=== PATIENT | female | born 1970 | race Caucasian/White ===

== ENCOUNTER 2016-06-22 17:52 | Emergency (ER) | payer BC ==
[~2016-06-22] VITALS: Ht 165.1 cm; Wt 68.6 kg
[~2016-06-22 17:52] MED LIST: BACT800T5 PO; BUPR-175 PO; ESTR.1T TD; METHY5 PO; SERT100 PO
[2016-06-22 17:57] VITALS: BP 128/82; PULSE 85; RESP 18; TEMP 98.2; O2SAT 100
[2016-06-22 18:12] VITALS: O2SAT 97
[2016-06-22] MEDS ORDERED: WELLTAB39 PO (18:15)
[2016-06-22] MEDS ORDERED: ZANT150T2 PO (18:15)
[2016-06-22] MEDS ORDERED: LORA-373 PO (18:15)
[2016-06-22] MEDS ORDERED: SODIUM CHLORIDE 0.9% FLUSH 10 ML FLUSH IV FLUSH PRN (18:15)
[2016-06-22] MEDS ORDERED: METHY10 PO (18:15)
[2016-06-22] MEDS ORDERED: ZOLO100T PO (18:15)
--- NOTE | 2016-06-22 18:19 | PD ---
HPI Chief Complaint: Abdominal Pain Time Seen by Provider: 18:15 Travel History International Travel<30 days: No Contact w/Intl Traveler<30days: No Traveled to known affect area: No History of Present Illness HPI 46-year-old female with previous history of cholecystectomy and hysterectomy, presents to the ER today for several days history of left periumbilical pains which she states feels like pulsations intermittently, tingling down both legs, and nausea. She denies any vomiting, diarrhea, fevers, or any other symptoms. She talked her primary care physician and was told to come into the ER for further evaluation. She rates the pain currently at a 4 out of 10. She does not know any exacerbating or alleviating factors. Modifying Factors: None Associated Signs & Symptoms: Feeling pulsations and left periumbilical abdominal pains with tingling down the legs Risk Factors: None PFSH Past Medical History ADHD: Yes Anxiety: Yes Depression: Yes Cancer: No Cardiovascular Problems: No Diabetes: No Glaucoma: No Headaches: Yes Hepatitis: No Hiatal Hernia: No Hypertension: No Respiratory: No Thyroid Disease: No ?: Not Past Surgical History Abdominal Surgery: Yes Section: Yes Gynecologic Surgery: Yes (CERCLAGE X 2; LASER CERVICAL DYSPLASIA) Hysterectomy: Yes Pacemaker: No Other Surgery: Yes (BIOPSY right breast) Social History Alcohol Use: No Tobacco Use: No Substance Use: No Allergies-Medications (Allergen,Severity, Reaction): Coded Allergies: Penicillin (Verified Allergy, Severe, Hives, 06/22/16) HIVES Reported Meds & Prescriptions Reported Meds & Active Scripts Active Reported Lorazepam 0.5 Mg Tab 0.5 Mg PO DAILY PRN Ritalin IR (Methylphenidate HCl) 10 Mg Tab 10 Mg PO DAILY Wellbutrin Xl 24 HR (Bupropion HCl) 300 Mg Tab 300 Mg PO DAILY Zoloft (Sertraline HCl) 100 Mg Tab 250 Mg PO DAILY Zantac (Ranitidine HCl) 150 Mg Tab 150 Mg PO DAILY Review of Systems Except as stated in HPI: all other systems reviewed are Neg Physical Exam Narrative GENERAL: [Well-developed middle age white female who is currently not in acute distress. SKIN: Focused skin assessment warm/dry. HEAD: Atraumatic. Normocephalic. EYES: Pupils equal and round. No scleral icterus. No injection or drainage. ENT: No nasal bleeding or discharge. Mucous membranes pink and moist. NECK: Trachea midline. No JVD. CARDIOVASCULAR: Regular rate and rhythm. No murmur appreciated. RESPIRATORY: No accessory muscle use. Clear to auscultation. Breath sounds equal bilaterally. GASTROINTESTINAL: Abdomen soft, mild left periumbilical tenderness without guarding or rebound, nondistended. Hepatic and splenic margins not palpable. MUSCULOSKELETAL: No obvious deformities. No clubbing. No cyanosis. No edema. NEUROLOGICAL: Awake and alert. No obvious cranial nerve deficits. Motor grossly within normal limits. Normal speech. PSYCHIATRIC: Appropriate mood and affect; insight and judgment normal. Data Data Last Documented VS Vital Signs Date Time Temp Pulse Resp B/P Pulse Ox O2 Delivery O2 Flow Rate FiO2 06/22/16 18:12 97 06/22/16 17:57 98.2 85 18 128/82 Orders Complete Blood Count With Diff (06/22/16 18:05) Comprehensive Metabolic Panel (06/22/16 18:05) Lipase (06/22/16 18:05) Urinalysis - C+S If Indicated (06/22/16 18:05) Iv Access Insert/Monitor (06/22/16 18:05) Ecg Monitoring (06/22/16 18:05) Oximetry (06/22/16 18:05) Sodium Chloride 0.9% Flush (Ns Flush) (06/22/16 18:15) Ct Abd/Pel W Iv Contrast(Rout) (06/22/16 18:15) Labs Laboratory Tests Test 06/22/16 18:15 White Blood Count 7.2 TH/MM3 Red Blood Count 4.59 MIL/MM3 Hemoglobin 12.9 GM/DL Hematocrit 39.2 % Mean Corpuscular Volume 85.3 FL Mean Corpuscular Hemoglobin 28.1 PG Mean Corpuscular Hemoglobin 33.0 % Concent Red Cell Distribution Width 12.5 % Platelet Count 185 TH/MM3 Mean Platelet Volume 9.0 FL Neutrophils (%) (Auto) 69.6 % Lymphocytes (%) (Auto) 20.9 % Monocytes (%) (Auto) 7.3 % Eosinophils (%) (Auto) 1.7 % Basophils (%) (Auto) 0.5 % Neutrophils # (Auto) 5.1 TH/MM3 Lymphocytes # (Auto) 1.5 TH/MM3 Monocytes # (Auto) 0.5 TH/MM3 Eosinophils # (Auto) 0.1 TH/MM3 Basophils # (Auto) 0.0 TH/MM3 CBC Comment DIFF FINAL Differential Comment Sodium Level 141 MEQ/L Potassium Level 3.8 MEQ/L Chloride Level 106 MEQ/L Carbon Dioxide Level 25.6 MEQ/L Anion Gap 9 MEQ/L Blood Urea Nitrogen 11 MG/DL Creatinine 0.83 MG/DL Estimat Glomerular Filtration 74 ML/MIN Rate Random Glucose 120 MG/DL Calcium Level 8.9 MG/DL Total Bilirubin 0.2 MG/DL Aspartate Amino Transf 10 U/L (AST/SGOT) Alanine Aminotransferase 23 U/L (ALT/SGPT) Alkaline Phosphatase 58 U/L Total Protein 7.0 GM/DL Albumin 3.8 GM/DL Lipase 120 U/L [facility] Medical Decision Making Medical Screen Exam Complete: Yes Emergency Medical Condition: Yes Medical Record Reviewed: Yes Interpretation(s) Laboratory Tests Test 06/22/16 18:15 Estimat Glomerular Filtration 74 ML/MIN (>89) Rate Random Glucose 120 MG/DL (74-106) Aspartate Amino Transf 10 U/L (15-37) (AST/SGOT) Differential Diagnosis Gastroenteritis versus obstruction versus aortic aneurysm versus electro abnormalities versus dehydration Narrative Course Labwork and CAT scan was ordered for further evaluation. Patient is fairly comfortable in the ER and does not want pain medications currently. Procedures Procedure Narrative Transabdominal aortic ultrasound was done by me and shows a 1.25 cm aorta. I do not see any signs of acute dilation. Physician Communication Physician Communication Case is signed out to Dr. Michael at 7 PM pending CAT scan and urine. Disposition based on CAT scan and reevaluation. Diagnosis Primary Impression: Abdominal pain Condition: Stable Alison Alvarez MD Jun 22, 2016 18:19
[2016-06-22 18:24] LABS: AUTOMATED NEUTROPHIL # 5.1 TH/MM3 (1.8-7.7); BASOPHIL % 0.5 % (0.0-2.0); EOSINOPHIL # 0.1 TH/MM3 (0-0.4); EOSINOPHIL % 1.7 % (0.0-4.0); HEMATOCRIT 39.2 % (35.0-46.0); HEMO FLAGS DIFF FINAL; LYMPH % 20.9 % (9.0-44.0); LYMPHOCYTE # 1.5 TH/MM3 (1.0-4.8); MEAN CELL VOLUME 85.3 FL (80.0-100.0); MEAN CORPUSCULAR HEMOGLOBIN 28.1 PG (27.0-34.0); MONO % 7.3 % (0.0-8.0); NEUT % 69.6 % (16.0-70.0); PLATELET COUNT 185 TH/MM3 (150-450); RED BLOOD COUNT 4.59 MIL/MM3 (4.00-5.30); RED CELL DISTRIBUTION WIDTH 12.5 % (11.6-17.2); WHITE BLOOD COUNT 7.2 TH/MM3 (4.0-11.0)
[2016-06-22 18:35] LABS: CHLORIDE 106 MEQ/L (98-107); POTASSIUM 3.8 MEQ/L (3.5-5.1); SODIUM (NA) 141 MEQ/L (136-145)
[2016-06-22 18:40] LABS: ANION GAP 9 MEQ/L (5-15); BICARBONATE 25.6 MEQ/L (21.0-32.0); BLOOD UREA NITROGEN 11 MG/DL (7-18)
[2016-06-22 18:42] LABS: ALT (GPT) 23 U/L (10-53); AST (GOT) 10 U/L (15-37); GLOMERULAR FILTRATION RATE 74 ML/MIN (>89)
[2016-06-22 18:44] LABS: TOTAL BILIRUBIN ADULT 0.2 MG/DL (0.2-1.0)
[2016-06-22 18:45] LABS: ALKALINE PHOSPHATASE 58 U/L (45-117)
[2016-06-22 19:05] VITALS: BP 116/71; PULSE 79; RESP 18; TEMP 98.6; O2SAT 97
[2016-06-22 19:14] LABS: BLOOD, URINE NEG (NEG); GLUCOSE,URINE NEG (NEG); KETONE, URINE NEG (NEG); NITRITE,URINE NEG (NEG); PH, URINE 6.5 (5.0-8.5)
[2016-06-22 19:22] LABS: BACTERIA, URINE RARE /hpf; COMMENT (UR) CULT NOT INDICATED; CULTURE IF INDICATED CULT NOT INDICATED; RBC, URINE 0-3 /hpf (0-3); SQUAMOUS EPITHELIAL CELL URINE > 8 /hpf (0-5); URINE COLOR YELLOW (YELLW/STRAW)
[2016-06-22] MEDS ORDERED: IOHEXOL 350 MG/ML 10 ML VIAL (for RAD DIAG) IV ONE (19:31)
--- NOTE | 2016-06-22 19:42 | RADHPO ---
EXAM DATE/TIME: 06/22/2016 19:15 [place] COMPARISON: No previous studies available for comparison. INDICATIONS : Left periumbilical pain. IV CONTRAST: 100 cc Omnipaque 350 (iohexol) IV ORAL CONTRAST: No oral contrast ingested. RADIATION DOSE: 8.06 CTDIvol (mGy) MEDICAL HISTORY : None SURGICAL HISTORY : Cholecystectomy. Hysterectomy. section. ENCOUNTER: Initial ACUITY: 1 week PAIN SCALE: 4/10 LOCATION: Left Umbilical TECHNIQUE: Volumetric scanning of the abdomen and pelvis was performed. Using automated exposure control and ad justment of the mA and/or kV according to patient size, radiation dose was kept as low as reasonably achievable to obtain optimal diagnostic quality images. FINDINGS: LOWER LUNGS: The visualized lower lungs are clear. LIVER: Left lobe liver cyst. No suspicious mass. No biliary ductal dilatation. SPLEEN: Normal size without lesion. PANCREAS: Within normal limits. KIDNEYS: 5 mm nonobstructing lower pole stone on the left. Small lower pole cyst on the left. No evidence of h ydronephrosis. No ureteral stones. ADRENAL GLANDS: Within normal limits. VASCULAR: There is no aortic aneurysm. BOWEL/MESENTERY: The stomach, small bowel, and colon demonstrate no acute abnormality. There is no free intraperitone al air or fluid. ABDOMINAL WALL: Within normal limits. RETROPERITONEUM: There is no lymphadenopathy. BLADDER: No wall thickening or mass. REPRODUCTIVE: Within normal limits. INGUINAL: There is no lymphadenopathy or hernia. MUSCULOSKELETAL: There is a 3 cm lobular densely sclerotic bone lesion involving the lateral aspect of the left femora l neck. CONCLUSION: Hepatic and left renal cysts. Small nonobstructing left renal stone. Fairly benign-appearing sclerotic bone lesion in the left femoral neck. Followup of this to document stability would be suggested. Guero Marcelo MD on June 22, 2016 at 19:33 Board Certified Radiologist. This report was verified electronically.
--- NOTE | 2016-06-22 19:56 | PD ---
Physical Exam Time Seen by Provider: 19:[address] Kessler left this patient with me to check the results of the CAT scan and lab work and make a disposition. Data Data Last Documented VS Vital Signs Date Time Temp Pulse Resp B/P Pulse Ox O2 Delivery O2 Flow Rate FiO2 06/22/16 19:05 98.6 79 18 116/71 97 Room Air Orders Complete Blood Count With Diff (06/22/16 18:05) Comprehensive Metabolic Panel (06/22/16 18:05) Lipase (06/22/16 18:05) Urinalysis - C+S If Indicated (06/22/16 18:05) Iv Access Insert/Monitor (06/22/16 18:05) Ecg Monitoring (06/22/16 18:05) Oximetry (06/22/16 18:05) Sodium Chloride 0.9% Flush (Ns Flush) (06/22/16 18:15) Ct Abd/Pel W Iv Contrast(Rout) (06/22/16 18:15) Iohexol 350 Inj (Omnipaque 350 Inj) (06/22/16 19:31) Labs Laboratory Tests Test 06/22/16 06/22/16 18:15 19:05 White Blood Count 7.2 TH/MM3 Red Blood Count 4.59 MIL/MM3 Hemoglobin 12.9 GM/DL Hematocrit 39.2 % Mean Corpuscular Volume 85.3 FL Mean Corpuscular Hemoglobin 28.1 PG Mean Corpuscular Hemoglobin 33.0 % Concent Red Cell Distribution Width 12.5 % Platelet Count 185 TH/MM3 Mean Platelet Volume 9.0 FL Neutrophils (%) (Auto) 69.6 % Lymphocytes (%) (Auto) 20.9 % Monocytes (%) (Auto) 7.3 % Eosinophils (%) (Auto) 1.7 % Basophils (%) (Auto) 0.5 % Neutrophils # (Auto) 5.1 TH/MM3 Lymphocytes # (Auto) 1.5 TH/MM3 Monocytes # (Auto) 0.5 TH/MM3 Eosinophils # (Auto) 0.1 TH/MM3 Basophils # (Auto) 0.0 TH/MM3 CBC Comment DIFF FINAL Differential Comment Sodium Level 141 MEQ/L Potassium Level 3.8 MEQ/L Chloride Level 106 MEQ/L Carbon Dioxide Level 25.6 MEQ/L Anion Gap 9 MEQ/L Blood Urea Nitrogen 11 MG/DL Creatinine 0.83 MG/DL Estimat Glomerular Filtration 74 ML/MIN Rate Random Glucose 120 MG/DL Calcium Level 8.9 MG/DL Total Bilirubin 0.2 MG/DL Aspartate Amino Transf 10 U/L (AST/SGOT) Alanine Aminotransferase 23 U/L (ALT/SGPT) Alkaline Phosphatase 58 U/L Total Protein 7.0 GM/DL Albumin 3.8 GM/DL Lipase 120 U/L Urine Color YELLOW Urine Turbidity CLEAR Urine pH 6.5 Urine Specific [place] 1.005 Urine Protein NEG mg/dL Urine Glucose (UA) NEG mg/dL Urine Ketones NEG mg/dL Urine Occult Blood NEG Urine Nitrite NEG Urine Bilirubin NEG Urine Leukocyte Esterase SMALL Urine RBC 0-3 /hpf Urine WBC 3-5 /hpf Urine Squamous Epithelial > 8 /hpf Cells Urine Bacteria RARE /hpf Microscopic Urinalysis Comment CULT NOT INDICATED MDM Medical Record Reviewed: Yes Supervised Visit with RHONDA: Yes Interpretation(s) The complete metabolic profile shows a GFR 74 but is otherwise unremarkable. The urinalysis shows small leukocyte esterase and rare bacteria and culture is not indicated. The CBC is normal. The CT abdomen pelvis with IV contrast shows no acute change. There are hepatic and left renal cysts present and a small nonobstructing left renal stone. There is a benign-appearing sclerotic bone lesion on the left femoral neck and follow-up to document stability is suggested. Differential Diagnosis Gastroenteritis, dissecting aortic aneurysmhighly unlikely, abdominal aortic aneurysmhighly unlikely, electrolyte disorder, dehydration, urinary tract infection, pancreatitis, gastritis Narrative Course The patient has abdominal pain etiology undetermined. We could not find any significant cause for her pain. The pain is apparently minimal but her primary care physician wanted to be seen in the emergency department because of the symptoms possibly suggesting aortic aneurysm. She is told about the findings on the left femoral neck and to give the report to her primary care physician so he can possibly get a repeat x-ray in the future. She does not want anything for pain or nausea. Diagnosis Primary Impression: Abdominal pain of unknown etiology Additional Instruction: As we discussed, take the laboratory/imaging results to her primary care physician. He may wish to repeat the x-ray of your left femur to document stability of this small lesion. Med/Other Pt SpecificInfo: No Change to Meds Disposition: 01 DISCHARGE HOME Condition: Stable Satno Michael MD Jun 22, 2016 19:56
[2016-06-22 20:15] VITALS: BP 119/83; PULSE 82; RESP 20; TEMP 98.3; O2SAT 100
== END 2016-06-22 20:34 | disposition home or self-care (01) ==
LOC: PHED 17:52
DX: F41.8 Other specified anxiety disorders (principal)
CPT/HCPCS: 74177; 80053; 81001; 83690; 85025; 99284; Q9967